=== PATIENT | female | born 1990 | race Caucasian/White ===

== ENCOUNTER 2019-03-11 11:52 | Emergency (ER) | payer BC, SELFPAY ==
[2019-03-11] MEDS ORDERED: Orphenadrine Citrate 60 MG/2 ML VIAL ONE (12:57)
[2019-03-11] MEDS ORDERED: Ketorolac Tromethamine 60 MG/2 ML VIAL ONE (12:57)
--- NOTE | 2019-03-11 12:59 | RAD ---
Exam: 3 views lumbar spine HISTORY: Pain after tubing a few days ago COMPARISON: none FINDINGS: 5 lumbar type vertebral bodies. Vertebral body height is obtained. No fracture. Disc space heights are preserved. No spondylolisthesis. No spondylolysis. IMPRESSION: Unremarkable 3 views lumbar spine
== END 2019-03-11 13:23 | disposition home or self-care (01) ==
LOC: NAV ERS 11:52
DX: M54.5 Low back pain (principal)
CPT/HCPCS: 72100; 96372; J1885; J2360

== ENCOUNTER 2023-07-04 14:29 | Outpatient (CLI) | payer OTHER | END 2023-07-04 14:30 | disposition home or self-care (01) | LOC: NAV RAD 14:29 | PROVIDERS: ATTEND Student in an Organized Health Care Education/Training Program | DX: M53.3 Sacrococcygeal disorders, not elsewhere classified (principal) | CPT/HCPCS: 72100 ==